=== PATIENT | female | born 1995 | race Caucasian/White ===

== ENCOUNTER 2018-05-19 15:19 | Emergency (ER) | payer BC ==
[~2018-05-19] VITALS: Ht 167.6 cm; Wt 71.8 kg
[2018-05-19 15:20] VITALS: BP 129/76
[2018-05-19] MEDS ORDERED: diphenhydrAMINE 50 mg/ml inj IM ONE (15:30)
[2018-05-19] MEDS ORDERED: diphenhydrAMINE 25mg capsule PO ONE (16:10)
== END 2018-05-19 17:02 | disposition home or self-care (01) ==
LOC: ER 15:20
DX: T63.441A Toxic effect of venom of bees, accidental (unintentional), initial encounter (principal); Z88.5 Allergy status to narcotic agent; Y92.9 Unspecified place or not applicable
CPT/HCPCS: 99282; Q0163

== ENCOUNTER 2018-06-10 08:00 | Day surgery (SDC) | payer BC, MEDICAID ==
[2018-06-03 15:23] LABS: BASOPHILS % (AUTO) 0.6 % (0-1); EOSINOPHILS # (AUTO) 0.1 X10'3 (0-0.9); EOSINOPHILS % (AUTO) 1.3 % (0-6); LYMPHOCYTES # (AUTO) 2.5 X10'3 (1.1-4.8); LYMPHOCYTES % (AUTO) 36.9 % (21-51); MEAN CORPUSCULAR HEMOGLOBIN 26.5 PG (27.0-31.0); MEAN CORPUSCULAR HGB CONC 32.8 % (33.0-36.5); MEAN CORPUSCULAR VOLUME 80.8 FL (78-98); MEAN PLATELET VOLUME 10.1 FL (7.4-10.4); MONOCYTES # (AUTO) 0.6 X10'3 (0-0.9); MONOCYTES % (AUTO) 8.8 % (2-12); NEUTROPHILS # (AUTO) 3.5 X10'3 (1.8-7.7); NEUTROPHILS % (AUTO) 52.4 % (42-75); PRE OP HEMATOCRIT 42.2 % (35.0-45.0); PRE OP HEMOGLOBIN 13.8 g/dL (12.0-16.0); PRE OP PLATELET COUNT 211 X10'3 (140-440); RED BLOOD COUNT 5.23 X10'6 (4.20-5.60); RED CELL DISTRIBUTION WIDTH 18.4 % (11.5-14.5)
[2018-06-03 15:48] LABS: HCG SERUM QL NEGATIVE
[2018-06-10] VITALS (10 sets, daily range): BP systolic 101–132; BP diastolic 60–74
[~2018-06-10] VITALS: Ht 167.6 cm; Wt 71.5 kg
[~2018-06-10 08:00] MED LIST: Cefazolin 2GM/50ML dext iso,osmotic IVPB IV ONE; NO HOME MEDS; famotidine 20mg tablet PO ONE; ringers solution, lacted 1,000 ML IV SCH
[2018-06-10] MEDS ORDERED: BUPIVAcaine/PF 2.5mg/ml (0.25%) 10ml vial ONE (09:05)
[2018-06-10] MEDS ORDERED: epiNEPHrine 1 mg/ml inj ONE (09:05)
[2018-06-10] MEDS ORDERED: sevoflurane 250ml liquid IH ONE (10:06)
[2018-06-10] MEDS ORDERED: midazolam 2 mg/2 ml injection ONE (10:08)
[2018-06-10] MEDS ORDERED: fentaNYL/PF 50MCG/1 ML 2ML syringe ONE (10:08)
[2018-06-10] MEDS ORDERED: rocuronium 10mg/ml inj IV ONE (10:25)
[2018-06-10] MEDS ORDERED: propofol inj 20 ML IV ONE (10:25)
[2018-06-10] MEDS ORDERED: ondansetron/PF 4mg/2ml inj ONE (10:25)
[2018-06-10] MEDS ORDERED: dexamethasone sod phosphate 4mg/ml inj. ONE (10:25)
[2018-06-10] MEDS ORDERED: ringers solution, lacted 1,000 ML IV SCH (10:39)
[2018-06-10] MEDS ORDERED: meperidine/PF 25mg/ml syringe IV PRN ×2 (10:40)
[2018-06-10] MEDS ORDERED: proCHLORperazine 10 MG/2 ml inj IV PRN (10:40)
[2018-06-10] MEDS ORDERED: ondansetron/PF 4mg/2ml inj IV PRN (10:40)
[2018-06-10] MEDS ORDERED: morphine 4 MG/ML inj SYRINge IV PRN ×2 (10:40)
[2018-06-10] MEDS ORDERED: glycopyrrolate 0.2mg/ml inj ONE (10:53)
[2018-06-10] MEDS ORDERED: neostigmine methylsulfate 1 MG/ML 10ml vial ONE (10:53)
[2018-06-10] MEDS ORDERED: ketorolac trometh. 30mg/ml inj. IV ONE (11:00)
[2018-06-10] MEDS: meperidine/PF 25mg/ml syringe IV PRN ×2 (11:10→11:34)
== END 2018-06-10 12:25 | disposition home or self-care (01) ==
LOC: PAS 08:00
PROVIDERS: ATTEND Obstetrics & Gynecology
DX: Z30.2 Encounter for sterilization (principal); Z88.5 Allergy status to narcotic agent; Z91.030 Bee allergy status; Z88.3 Allergy status to other anti-infective agents; Z98.890 Other specified postprocedural states
CPT/HCPCS: 36415; 58670; 84703; 85025; A6258; A6402; J0171; J0690; J1100; J1885; J2175; J2250; J2405; J2704; J2710; J3010; J3490; J7120; A7000

== ENCOUNTER 2025-09-13 08:40 | Outpatient (CLI) | payer OTHER ==
[2025-09-13] VITALS (23 sets, daily range): BP systolic 99–124; BP diastolic 47–78; PULSE 71–106
[~2025-09-13 08:40] MED LIST changes: -Cefazolin 2GM/50ML dext iso,osmotic IVPB IV ONE; -famotidine 20mg tablet PO ONE; -ringers solution, lacted 1,000 ML IV SCH
== END 2025-09-13 23:59 | disposition home or self-care (01) ==
LOC: CARD DIAG 08:40
PROVIDERS: ATTEND Internal Medicine Interventional Cardiology
DX: I95.9 Hypotension, unspecified (principal)
CPT/HCPCS: 93660